=== PATIENT | male | born 1990 | race Caucasian/White ===

== ENCOUNTER 2025-04-13 15:57 | Emergency (ER) | payer MEDICAID ==
[~2025-04-13] VITALS: Ht 172.7 cm; Wt 108.5 kg
[2025-04-13] MEDS ORDERED: LORazepam 2 MG/ML VIAL IV ONE (16:30)
[2025-04-13 16:34] LABS: BASOPHILS 2.4 % (0.2-1.2); EOSINOPHILS 1.2 % (0.8-7.0); LYMPHOCYTES 14.1 % (21.8-53.1); MCH 32.9 PG (25.7-32.2); MCHC 35.0 g/dL (32.3-36.5); MCV 94.1 fL (79.0-92.2); MONOCYTES 9.7 % (5.3-12.2); NEUTROPHILS 71.9 % (34.0-67.9); RBC 4.25 M/uL (4.63-6.08)
[2025-04-13 16:46] LABS: ALCOHOL, MEDICAL <3 ng/dL (<3); ALT (SGPT) 85 U/L (14-59); AST (SGOT) 258 U/L (15-37); GLOMERULAR FILTRATION RATE,EST 121 mL/min (>60); PROTEIN, TOTAL 8.6 g/dL (6.4-8.2); UREA NITROGEN 3 mg/dL (7-18)
[2025-04-13] MEDS ORDERED: LORazepam 1 MG TAB PO ONE (18:15)
[2025-04-13] MEDS ORDERED: CHLORDIAZEPOXID25 MG PO (18:24)
[2025-04-13] MEDS ORDERED: LORazepam 1 MG HOME.PACK PO ONE (18:30)
[2025-04-13 18:46] VITALS: BP 135/97
--- NOTE | 2025-04-14 19:41 | EKG ---
[facility] [address] [facility] [place], [place] [address] Signed Sinus tachycardia with short [place] Possible Lateral infarct , age undetermined Inferior infarct , age undetermined Abnormal ECG No previous ECGs available Confirmed by Claribel Schaffer DO ([id number]) on 04/14/2025 7:40:58 PM Electronically Signed By: CLARIBEL SCHAFFER DO 04/14/251940 PATIENT NAME: OMAR ROQUE Electrocardiogram DATE OF : 88 PHYSICIAN: CLARIBEL SCHAFFER DO REPORT #: [id number] REPORT IS CONFIDENTIAL AND NOT TO BE RELEASED WITHOUT AUTHORIZATION
== END 2025-04-13 18:48 | disposition home or self-care (01) ==
LOC: ED 15:57
PROVIDERS: Emergency Medicine
DX: F10.239 Alcohol dependence with withdrawal, unspecified (principal)
CPT/HCPCS: 36415; 80053; 83735; 85025; 93005; 93010; 96374; 99284; A9270-GY; G0480; J2060